=== PATIENT | male | born 1940 | race Caucasian/White ===

== ENCOUNTER 2018-01-08 17:55 | Inpatient (IN) | payer MEDICARE, BC ==
[~2018-01-08] VITALS: Ht 170.2 cm; Wt 82.7 kg
[2018-01-08] MEDS ORDERED: magnesium hydroxide 30ml (MOM) UD suspension PO PRN (21:00)
[2018-01-08] MEDS ORDERED: HYDROcodone/acetaminophen 5mg/325mg tablet PO PRN (21:00)
[2018-01-08] MEDS ORDERED: acetaminophen 325mg tablet PO PRN ×2 (21:00)
[2018-01-08] MEDS: HYDROcodone/acetaminophen 10/325mg tab PO PRN (21:28)
[2018-01-08 21:50] LABS: PARTIAL THROMBOPLASTIN TIME 30 SECONDS (22-32); PROTHROMBIN TIME 10.7 SECONDS (9.0-12.0)
[2018-01-08 21:55] LABS: ALANINE AMINOTRANSFERASE 26 U/L (12-78); ALBUMIN 2.6 G/DL (3.4-5.0); ALBUMIN/GLOBULIN RATIO 0.8 (1.1-1.5); ALKALINE PHOSPHATASE 49 IU/L (46-116); ANION GAP 4 (8-16); ASPARTATE AMINO TRANSFERASE 31 U/L (10-37); BILIRUBIN,TOTAL 0.3 MG/DL (0.1-1.0); BLOOD UREA NITROGEN 12 MG/DL (7-18); BUN/CREATININE RATIO 11.9 (5.4-32.0); CALCIUM 7.7 MG/DL (8.5-10.1); CHLORIDE 104 MMOL/L (99-107); CREATININE 1.01 MG/DL (0.60-1.10); GLUCOSE 113 MG/DL (70-104); MAGNESIUM 1.4 MG/DL (1.5-2.4); SODIUM 136 MMOL/L (135-145); TOTAL CARBON DIOXIDE 28.3 MMOL/L (24-32); eGFR 71 ML/MIN
[2018-01-08 22:00] VITALS: BP 114/57
[2018-01-08 22:03] LABS: POTASSIUM 4.1 MMOL/L (3.5-5.1)
[2018-01-08] MEDS: normal saline 1000ml 1,000 ML IV SCH (23:40)
[2018-01-09] MEDS: piperacillin/tazo 4.5gm/100ml 100 ML IV SCH ×4 (00:38→23:46)
[2018-01-09 05:03] LABS: BASOPHILS # (AUTO) 0.1 X10'3 (0-0.2); BASOPHILS % (AUTO) 0.3 % (0-1); EOSINOPHILS # (AUTO) 0.5 X10'3 (0-0.9); EOSINOPHILS % (AUTO) 2.8 % (0-6); HEMATOCRIT 34.2 % (42.0-52.0); HEMOGLOBIN 11.3 g/dl (14.0-17.9); LYMPHOCYTES # (AUTO) 2.2 X10'3 (1.1-4.8); LYMPHOCYTES % (AUTO) 13.3 % (21-51); MEAN CORPUSCULAR HEMOGLOBIN 29.8 PG (27.0-31.0); MEAN CORPUSCULAR HGB CONC 33.1 % (33.0-36.5); MEAN CORPUSCULAR VOLUME 89.9 FL (78-98); MEAN PLATELET VOLUME 9.1 FL (7.4-10.4); MONOCYTES # (AUTO) 1.4 X10'3 (0-0.9); MONOCYTES % (AUTO) 8.6 % (2-12); NEUTROPHILS # (AUTO) 12.4 X10'3 (1.8-7.7); PLATELET COUNT 217 X10'3 (140-440); RED CELL DISTRIBUTION WIDTH 14.5 % (11.5-14.5); WHITE BLOOD COUNT 16.5 X10'3 (4.5-11.0)
[2018-01-09 05:25] LABS: ALANINE AMINOTRANSFERASE 22 U/L (12-78); ALBUMIN 2.3 G/DL (3.4-5.0); ALBUMIN/GLOBULIN RATIO 0.8 (1.1-1.5); ALKALINE PHOSPHATASE 40 IU/L (46-116); ANION GAP 4 (8-16); ASPARTATE AMINO TRANSFERASE 26 U/L (10-37); BILIRUBIN,TOTAL 0.3 MG/DL (0.1-1.0); BLOOD UREA NITROGEN 10 MG/DL (7-18); BUN/CREATININE RATIO 9.5 (5.4-32.0); CALCIUM 7.5 MG/DL (8.5-10.1); CHLORIDE 106 MMOL/L (99-107); CREATININE 1.05 MG/DL (0.60-1.10); GLUCOSE 90 MG/DL (70-104); MAGNESIUM 1.3 MG/DL (1.5-2.4); POTASSIUM 4.2 MMOL/L (3.5-5.1); SODIUM 138 MMOL/L (135-145); TOTAL CARBON DIOXIDE 28.3 MMOL/L (24-32); TOTAL PROTEIN 5.3 G/DL (6.4-8.2); eGFR 68 ML/MIN
[2018-01-09 07:00] VITALS: BP 141/69
[2018-01-09] MEDS: heparin, porcine 5000 units/ml vial SQ SCH ×2 (08:00→20:53)
[2018-01-09] MEDS: HYDROcodone/acetaminophen 10/325mg tab PO PRN ×2 (08:02→20:50)
[2018-01-09] MEDS ORDERED: HYDR-565 PO (10:07)
[2018-01-09] MEDS ORDERED: LISI10TA4 PO (10:09)
[2018-01-09] MEDS ORDERED: ASPI-1265 PO (10:09)
[2018-01-09] MEDS ORDERED: OMEP40CA37 PO (10:12)
[2018-01-09] MEDS ORDERED: ALPR1TAB2 PO (10:12)
[2018-01-09] MEDS ORDERED: SINCALIDE IV PRN (12:35)
[2018-01-09] MEDS ORDERED: NORMAL SALINE IV PRN (12:35)
[2018-01-09] MEDS: normal saline 1000ml 1,000 ML IV SCH ×2 (12:43→16:56)
[2018-01-09] MEDS ORDERED: magnesium 1gm/100ml D5W IVPB 100 ML IV PRN (13:05)
[2018-01-09] MEDS ORDERED: magnesium 4gm in 100ml NS 100 ML IV PRN (13:05)
[2018-01-09 20:00] VITALS: BP 134/75
[2018-01-09] MEDS: lactobacillus rhamnosus 10,000 MMU CELLS/CAPSULE PO SCH (20:49)
[2018-01-09] MEDS: magnesium Cl slow-release 64mg tablet PO PRN (21:50)
[2018-01-09] MEDS ORDERED: CAFFEINE CITRATE 60 MG/3 ML injection vial IV PRN (22:35)
[2018-01-09] MEDS ORDERED: regadenoson 0.4mg/5ml syringe IV PRN (22:35)
[2018-01-09] MEDS ORDERED: metoprolol tartrate 1mg/ml inj IV PRN (22:35)
[2018-01-09] MEDS ORDERED: nitroGLYCERIN 0.4mg SUBLingual tab SL PRN (22:35)
[2018-01-09] MEDS: temazepam 15mg capsule PO PRN (23:47)
[2018-01-10] VITALS (13 sets, daily range): BP systolic 110–160; BP diastolic 49–89
[2018-01-10] MEDS: normal saline 1000ml 1,000 ML IV SCH ×3 (03:17→22:56)
[2018-01-10 05:13] LABS: BASOPHILS % (AUTO) 0.3 % (0-1); EOSINOPHILS # (AUTO) 0.4 X10'3 (0-0.9); EOSINOPHILS % (AUTO) 2.4 % (0-6); HEMATOCRIT 36.2 % (42.0-52.0); LYMPHOCYTES % (AUTO) 13.1 % (21-51); MEAN CORPUSCULAR HEMOGLOBIN 29.6 PG (27.0-31.0); MEAN CORPUSCULAR HGB CONC 33.2 % (33.0-36.5); MEAN CORPUSCULAR VOLUME 89.3 FL (78-98); MEAN PLATELET VOLUME 8.9 FL (7.4-10.4); MONOCYTES # (AUTO) 1.4 X10'3 (0-0.9); MONOCYTES % (AUTO) 8.8 % (2-12); NEUTROPHILS # (AUTO) 11.7 X10'3 (1.8-7.7); NEUTROPHILS % (AUTO) 75.4 % (42-75); PLATELET COUNT 246 X10'3 (140-440); RED BLOOD COUNT 4.06 X10'6 (4.70-6.10); RED CELL DISTRIBUTION WIDTH 14.7 % (11.5-14.5); WHITE BLOOD COUNT 15.6 X10'3 (4.5-11.0)
[2018-01-10 05:35] LABS: ALANINE AMINOTRANSFERASE 18 U/L (12-78); ALBUMIN 2.3 G/DL (3.4-5.0); ALBUMIN/GLOBULIN RATIO 0.7 (1.1-1.5); ALKALINE PHOSPHATASE 42 IU/L (46-116); ANION GAP 8 (8-16); ASPARTATE AMINO TRANSFERASE 28 U/L (10-37); BILIRUBIN,TOTAL 0.5 MG/DL (0.1-1.0); BLOOD UREA NITROGEN 7 MG/DL (7-18); CALCIUM 7.8 MG/DL (8.5-10.1); CHLORIDE 106 MMOL/L (99-107); CREATININE 0.87 MG/DL (0.60-1.10); GLUCOSE 78 MG/DL (70-104); MAGNESIUM 1.5 MG/DL (1.5-2.4); POTASSIUM 3.6 MMOL/L (3.5-5.1); SODIUM 142 MMOL/L (135-145); TOTAL CARBON DIOXIDE 28.4 MMOL/L (24-32); TOTAL PROTEIN 5.4 G/DL (6.4-8.2); eGFR 85 ML/MIN
[2018-01-10] MEDS: lactobacillus rhamnosus 10,000 MMU CELLS/CAPSULE PO SCH ×2 (07:54→21:14)
[2018-01-10] MEDS: piperacillin/tazo 4.5gm/100ml 100 ML IV SCH ×3 (07:54→23:48)
[2018-01-10] MEDS: heparin, porcine 5000 units/ml vial SQ SCH ×2 (07:56→21:15)
[2018-01-10] MEDS: HYDROcodone/acetaminophen 10/325mg tab PO PRN ×4 (07:56→22:07)
[2018-01-10] MEDS: lisinopril 10 MG tablet PO SCH (07:56)
[2018-01-10] MEDS ORDERED: fentaNYL/PF 50MCG/1 ML 2ML syringe ONE (11:18)
[2018-01-10] MEDS ORDERED: LIDOcaine 1%/PF 5ML 10 MG/ML VIAL ONE (11:28)
[2018-01-10] MEDS: docusate sod 100mg capsule PO SCH (21:14)
[2018-01-10] MEDS: temazepam 15mg capsule PO PRN (23:48)
[2018-01-11] VITALS: BP 159/80
[2018-01-11] MEDS: HYDROcodone/acetaminophen 10/325mg tab PO PRN ×3 (02:03→17:11)
[2018-01-11] MEDS: normal saline 1000ml 1,000 ML IV SCH ×2 (02:03→12:22)
[2018-01-11 05:16] LABS: BASOPHILS % (AUTO) 0.2 % (0-1); EOSINOPHILS # (AUTO) 0.4 X10'3 (0-0.9); EOSINOPHILS % (AUTO) 2.7 % (0-6); HEMATOCRIT 35.1 % (42.0-52.0); HEMOGLOBIN 11.6 g/dl (14.0-17.9); MEAN CORPUSCULAR HEMOGLOBIN 29.5 PG (27.0-31.0); MEAN CORPUSCULAR HGB CONC 32.9 % (33.0-36.5); MEAN CORPUSCULAR VOLUME 89.5 FL (78-98); MEAN PLATELET VOLUME 9.3 FL (7.4-10.4); MONOCYTES # (AUTO) 1.6 X10'3 (0-0.9); NEUTROPHILS # (AUTO) 10.2 X10'3 (1.8-7.7); NEUTROPHILS % (AUTO) 72.1 % (42-75); PLATELET COUNT 255 X10'3 (140-440); RED BLOOD COUNT 3.92 X10'6 (4.70-6.10); RED CELL DISTRIBUTION WIDTH 14.6 % (11.5-14.5); WHITE BLOOD COUNT 14.2 X10'3 (4.5-11.0)
[2018-01-11 05:31] LABS: ALANINE AMINOTRANSFERASE 20 U/L (12-78); ALBUMIN 2.2 G/DL (3.4-5.0); ALBUMIN/GLOBULIN RATIO 0.7 (1.1-1.5); ALKALINE PHOSPHATASE 38 IU/L (46-116); ANION GAP 7 (8-16); ASPARTATE AMINO TRANSFERASE 27 U/L (10-37); BILIRUBIN,TOTAL 0.5 MG/DL (0.1-1.0); BLOOD UREA NITROGEN 6 MG/DL (7-18); BUN/CREATININE RATIO 6.3 (5.4-32.0); CALCIUM 7.5 MG/DL (8.5-10.1); CHLORIDE 105 MMOL/L (99-107); CREATININE 0.95 MG/DL (0.60-1.10); GLUCOSE 89 MG/DL (70-104); MAGNESIUM 1.4 MG/DL (1.5-2.4); POTASSIUM 3.6 MMOL/L (3.5-5.1); SODIUM 138 MMOL/L (135-145); TOTAL CARBON DIOXIDE 26.2 MMOL/L (24-32); TOTAL PROTEIN 5.4 G/DL (6.4-8.2); eGFR 77 ML/MIN
[2018-01-11] MEDS: heparin, porcine 5000 units/ml vial SQ SCH ×2 (07:10→19:18)
[2018-01-11] MEDS: magnesium Cl slow-release 64mg tablet PO PRN ×2 (07:10→19:20)
[2018-01-11] MEDS: docusate sod 100mg capsule PO SCH ×2 (07:11→19:17)
[2018-01-11] MEDS: lisinopril 10 MG tablet PO SCH (07:11)
[2018-01-11] MEDS: lactobacillus rhamnosus 10,000 MMU CELLS/CAPSULE PO SCH ×2 (07:11→19:17)
[2018-01-11] MEDS: piperacillin/tazo 4.5gm/100ml 100 ML IV SCH ×3 (07:11→23:16)
[2018-01-11] MEDS: ondansetron/PF 4mg/2ml inj IV PRN ×2 (07:12→23:00)
[2018-01-11 07:35] VITALS: BP 177/81
[2018-01-11] MEDS ORDERED: morphine 2 MG/ML inj. syringe IV PRN (10:10)
[2018-01-11 10:17] VITALS: BP 152/76
[2018-01-11 11:31] VITALS: BP 122/68
[2018-01-11] MEDS: mag hydrox/Alum hydrox/simeth 30ml oral suspension PO PRN ×2 (12:24→19:21)
[2018-01-11] MEDS ORDERED: furosemide 40mg/4ml inj IV ONE (16:50)
[2018-01-11 18:00] VITALS: BP 133/79
[2018-01-11] MEDS: diatr meglu/diatrizoate 30ml oral sol.-(3 dose) bottle PO SCH (19:38)
[2018-01-11] MEDS: temazepam 15mg capsule PO PRN (22:52)
[2018-01-11 23:30] VITALS: BP 146/77
[2018-01-12 05:08] LABS: BASOPHILS # (AUTO) 0.1 X10'3 (0-0.2); BASOPHILS % (AUTO) 0.4 % (0-1); EOSINOPHILS # (AUTO) 0.2 X10'3 (0-0.9); EOSINOPHILS % (AUTO) 1.1 % (0-6); HEMATOCRIT 40.4 % (42.0-52.0); HEMOGLOBIN 13.3 g/dl (14.0-17.9); LYMPHOCYTES # (AUTO) 1.9 X10'3 (1.1-4.8); LYMPHOCYTES % (AUTO) 11.4 % (21-51); MEAN CORPUSCULAR HEMOGLOBIN 29.6 PG (27.0-31.0); MEAN CORPUSCULAR HGB CONC 32.9 % (33.0-36.5); MEAN CORPUSCULAR VOLUME 89.9 FL (78-98); MEAN PLATELET VOLUME 8.7 FL (7.4-10.4); MONOCYTES # (AUTO) 1.7 X10'3 (0-0.9); NEUTROPHILS # (AUTO) 12.9 X10'3 (1.8-7.7); NEUTROPHILS % (AUTO) 77.1 % (42-75); PLATELET COUNT 310 X10'3 (140-440); RED CELL DISTRIBUTION WIDTH 14.4 % (11.5-14.5); WHITE BLOOD COUNT 16.8 X10'3 (4.5-11.0)
[2018-01-12 05:56] LABS: ALANINE AMINOTRANSFERASE 23 U/L (12-78); ALBUMIN 2.6 G/DL (3.4-5.0); ALBUMIN/GLOBULIN RATIO 0.7 (1.1-1.5); ALKALINE PHOSPHATASE 41 IU/L (46-116); ANION GAP 3 (8-16); ASPARTATE AMINO TRANSFERASE 30 U/L (10-37); BILIRUBIN,TOTAL 0.5 MG/DL (0.1-1.0); BLOOD UREA NITROGEN 6 MG/DL (7-18); CALCIUM 8.1 MG/DL (8.5-10.1); CHLORIDE 102 MMOL/L (99-107); CREATININE 1.21 MG/DL (0.60-1.10); GLUCOSE 105 MG/DL (70-104); MAGNESIUM 1.6 MG/DL (1.5-2.4); POTASSIUM 3.5 MMOL/L (3.5-5.1); SODIUM 137 MMOL/L (135-145); TOTAL PROTEIN 6.3 G/DL (6.4-8.2); eGFR 58 ML/MIN
[2018-01-12] MEDS: diatr meglu/diatrizoate 30ml oral sol.-(3 dose) bottle PO SCH ×2 (06:58→20:24)
[2018-01-12 07:07] VITALS: BP 126/72
[2018-01-12] MEDS: piperacillin/tazo 4.5gm/100ml 100 ML IV SCH ×3 (07:13→23:55)
[2018-01-12] MEDS: docusate sod 100mg capsule PO SCH ×2 (07:13→20:00)
[2018-01-12] MEDS: lisinopril 10 MG tablet PO SCH (07:14)
[2018-01-12] MEDS: lactobacillus rhamnosus 10,000 MMU CELLS/CAPSULE PO SCH ×2 (07:14→20:19)
[2018-01-12] MEDS: magnesium hydroxide 30ml (MOM) UD suspension PO SCH ×2 (07:14→20:00)
[2018-01-12] MEDS: heparin, porcine 5000 units/ml vial SQ SCH ×2 (07:15→20:00)
[2018-01-12] MEDS: ondansetron/PF 4mg/2ml inj IV PRN (08:11)
[2018-01-12] MEDS ORDERED: furosemide 10 MG/1 ML 10ml inj IV ONE (09:15)
[2018-01-12] MEDS: HYDROcodone/acetaminophen 10/325mg tab PO PRN ×3 (10:41→20:20)
[2018-01-12 11:33] VITALS: BP 143/61
[2018-01-12 18:00] VITALS: BP 109/55
[2018-01-12] MEDS: temazepam 15mg capsule PO PRN (22:38)
[2018-01-13] VITALS: BP 125/60
[2018-01-13 05:02] LABS: BASOPHILS % (AUTO) 0.4 % (0-1); EOSINOPHILS # (AUTO) 0.3 X10'3 (0-0.9); EOSINOPHILS % (AUTO) 2.3 % (0-6); HEMATOCRIT 35.1 % (42.0-52.0); HEMOGLOBIN 11.5 g/dl (14.0-17.9); LYMPHOCYTES # (AUTO) 1.6 X10'3 (1.1-4.8); LYMPHOCYTES % (AUTO) 13.3 % (21-51); MEAN CORPUSCULAR HEMOGLOBIN 29.4 PG (27.0-31.0); MEAN CORPUSCULAR HGB CONC 32.9 % (33.0-36.5); MEAN CORPUSCULAR VOLUME 89.3 FL (78-98); MEAN PLATELET VOLUME 9.1 FL (7.4-10.4); MONOCYTES # (AUTO) 1.4 X10'3 (0-0.9); MONOCYTES % (AUTO) 11.4 % (2-12); NEUTROPHILS # (AUTO) 8.8 X10'3 (1.8-7.7); NEUTROPHILS % (AUTO) 72.6 % (42-75); PLATELET COUNT 287 X10'3 (140-440); RED BLOOD COUNT 3.93 X10'6 (4.70-6.10); RED CELL DISTRIBUTION WIDTH 14.7 % (11.5-14.5); WHITE BLOOD COUNT 12.1 X10'3 (4.5-11.0)
[2018-01-13 05:17] LABS: ALANINE AMINOTRANSFERASE 18 U/L (12-78); ALBUMIN 2.2 G/DL (3.4-5.0); ALBUMIN/GLOBULIN RATIO 0.6 (1.1-1.5); ALKALINE PHOSPHATASE 33 IU/L (46-116); ANION GAP 3 (8-16); ASPARTATE AMINO TRANSFERASE 32 U/L (10-37); BILIRUBIN,TOTAL 0.3 MG/DL (0.1-1.0); BLOOD UREA NITROGEN 8 MG/DL (7-18); BUN/CREATININE RATIO 7.7 (5.4-32.0); CHLORIDE 102 MMOL/L (99-107); CREATININE 1.04 MG/DL (0.60-1.10); GLUCOSE 102 MG/DL (70-104); MAGNESIUM 1.7 MG/DL (1.5-2.4); SODIUM 139 MMOL/L (135-145); TOTAL CARBON DIOXIDE 34.4 MMOL/L (24-32); TOTAL PROTEIN 5.6 G/DL (6.4-8.2); eGFR 69 ML/MIN
[2018-01-13 05:19] LABS: POTASSIUM 2.9 MMOL/L (3.5-5.1)
[2018-01-13] MEDS ORDERED: potassium Cl 20 mEq SR tablet PO PRN (05:40)
[2018-01-13] MEDS ORDERED: potassium Cl 40MEQ/NS 500ml 500 ML IV PRN ×2 (05:40)
[2018-01-13 07:00] VITALS: BP 152/73
[2018-01-13] MEDS: piperacillin/tazo 4.5gm/100ml 100 ML IV SCH ×3 (07:17→23:39)
[2018-01-13] MEDS: HYDROcodone/acetaminophen 10/325mg tab PO PRN ×2 (07:18→14:07)
[2018-01-13] MEDS: lisinopril 10 MG tablet PO SCH (07:18)
[2018-01-13] MEDS: magnesium hydroxide 30ml (MOM) UD suspension PO SCH ×2 (07:19→20:00)
[2018-01-13] MEDS: lactobacillus rhamnosus 10,000 MMU CELLS/CAPSULE PO SCH ×2 (07:21→20:07)
[2018-01-13] MEDS: docusate sod 100mg capsule PO SCH ×2 (07:22→20:00)
[2018-01-13] MEDS: heparin, porcine 5000 units/ml vial SQ SCH ×2 (07:23→20:00)
[2018-01-13] MEDS: potassium Cl 20 mEq SR tablet PO PRN ×3 (09:37→18:29)
[2018-01-13 11:00] VITALS: BP 147/73
[2018-01-13] MEDS ORDERED: regadenoson 0.4mg/5ml syringe IV ONE (12:10)
[2018-01-13] MEDS ORDERED: CAFFEINE CITRATE 60 MG/3 ML injection vial IV PRN (12:10)
[2018-01-13] MEDS ORDERED: nitroGLYCERIN 0.4mg SUBLingual tab SL PRN (12:10)
[2018-01-13] MEDS ORDERED: metoprolol tartrate 1mg/ml inj IV PRN (12:10)
[2018-01-13 19:00] VITALS: BP 131/71
[2018-01-13] MEDS: mag hydrox/Alum hydrox/simeth 30ml oral suspension PO PRN (21:01)
[2018-01-13] MEDS: ondansetron/PF 4mg/2ml inj IV PRN (22:05)
[2018-01-14] VITALS (16 sets, daily range): BP systolic 91–157; BP diastolic 53–79
[2018-01-14] MEDS: piperacillin/tazo 4.5gm/100ml 100 ML IV SCH ×2 (07:48→15:21)
[2018-01-14] MEDS: HYDROcodone/acetaminophen 10/325mg tab PO PRN ×4 (07:48→21:40)
[2018-01-14] MEDS: heparin, porcine 5000 units/ml vial SQ SCH ×2 (08:00→20:00)
[2018-01-14] MEDS: magnesium hydroxide 30ml (MOM) UD suspension PO SCH ×2 (08:00→20:00)
[2018-01-14] MEDS: lisinopril 10 MG tablet PO SCH (08:00)
[2018-01-14] MEDS: lactobacillus rhamnosus 10,000 MMU CELLS/CAPSULE PO SCH ×2 (08:00→20:00)
[2018-01-14] MEDS: docusate sod 100mg capsule PO SCH ×2 (08:00→20:00)
[2018-01-14] MEDS ORDERED: regadenoson 0.4mg/5ml syringe IV ONE (08:39)
[2018-01-14] MEDS ORDERED: CAFFEINE CITRATE 60 MG/3 ML injection vial IV ONE (08:39)
[2018-01-14 12:32] LABS: BASOPHILS % (AUTO) 0.3 % (0-1); EOSINOPHILS # (AUTO) 0.3 X10'3 (0-0.9); EOSINOPHILS % (AUTO) 2.3 % (0-6); HEMATOCRIT 38.6 % (42.0-52.0); HEMOGLOBIN 12.9 g/dl (14.0-17.9); LYMPHOCYTES # (AUTO) 1.6 X10'3 (1.1-4.8); LYMPHOCYTES % (AUTO) 11.7 % (21-51); MEAN CORPUSCULAR HEMOGLOBIN 29.8 PG (27.0-31.0); MEAN CORPUSCULAR HGB CONC 33.4 % (33.0-36.5); MEAN CORPUSCULAR VOLUME 89.1 FL (78-98); MEAN PLATELET VOLUME 9.1 FL (7.4-10.4); MONOCYTES # (AUTO) 1.4 X10'3 (0-0.9); MONOCYTES % (AUTO) 10.1 % (2-12); NEUTROPHILS # (AUTO) 10.5 X10'3 (1.8-7.7); NEUTROPHILS % (AUTO) 75.6 % (42-75); PLATELET COUNT 331 X10'3 (140-440); RED BLOOD COUNT 4.33 X10'6 (4.70-6.10); RED CELL DISTRIBUTION WIDTH 14.4 % (11.5-14.5); WHITE BLOOD COUNT 13.9 X10'3 (4.5-11.0)
[2018-01-14] MEDS: mag hydrox/Alum hydrox/simeth 30ml oral suspension PO PRN (20:22)
[2018-01-14] MEDS: carVEDilol 3.125mg tablet PO SCH (20:24)
[2018-01-15] VITALS: BP 142/75
[2018-01-15] MEDS: piperacillin/tazo 4.5gm/100ml 100 ML IV SCH ×4 (00:03→23:19)
[2018-01-15 07:20] VITALS: BP 168/75
[2018-01-15] MEDS: carVEDilol 3.125mg tablet PO SCH ×2 (07:56→19:41)
[2018-01-15] MEDS: docusate sod 100mg capsule PO SCH ×2 (08:00→19:38)
[2018-01-15] MEDS: magnesium hydroxide 30ml (MOM) UD suspension PO SCH ×2 (08:00→19:38)
[2018-01-15] MEDS: lisinopril 10 MG tablet PO SCH (08:00)
[2018-01-15] MEDS: heparin, porcine 5000 units/ml vial SQ SCH ×2 (08:00→19:39)
[2018-01-15] MEDS: lactobacillus rhamnosus 10,000 MMU CELLS/CAPSULE PO SCH ×2 (08:00→19:42)
[2018-01-15] MEDS: pantoprazole 40mg Tablet.DR PO SCH (09:54)
[2018-01-15 11:20] VITALS: BP 127/69
[2018-01-15] MEDS: HYDROcodone/acetaminophen 10/325mg tab PO PRN ×2 (12:34→21:53)
[2018-01-15 13:35] LABS: BASOPHILS % (AUTO) 0.4 % (0-1); EOSINOPHILS # (AUTO) 0.4 X10'3 (0-0.9); EOSINOPHILS % (AUTO) 3.6 % (0-6); HEMATOCRIT 37.9 % (42.0-52.0); HEMOGLOBIN 12.6 g/dl (14.0-17.9); LYMPHOCYTES # (AUTO) 1.4 X10'3 (1.1-4.8); LYMPHOCYTES % (AUTO) 12.8 % (21-51); MEAN CORPUSCULAR HEMOGLOBIN 29.5 PG (27.0-31.0); MEAN CORPUSCULAR HGB CONC 33.3 % (33.0-36.5); MEAN CORPUSCULAR VOLUME 88.5 FL (78-98); MEAN PLATELET VOLUME 8.6 FL (7.4-10.4); MONOCYTES # (AUTO) 1.1 X10'3 (0-0.9); MONOCYTES % (AUTO) 9.9 % (2-12); NEUTROPHILS # (AUTO) 8.1 X10'3 (1.8-7.7); NEUTROPHILS % (AUTO) 73.3 % (42-75); PLATELET COUNT 319 X10'3 (140-440); RED BLOOD COUNT 4.28 X10'6 (4.70-6.10); RED CELL DISTRIBUTION WIDTH 14.3 % (11.5-14.5)
[2018-01-15 13:48] LABS: ALANINE AMINOTRANSFERASE 36 U/L (12-78); ALBUMIN 2.4 G/DL (3.4-5.0); ALBUMIN/GLOBULIN RATIO 0.7 (1.1-1.5); ALKALINE PHOSPHATASE 38 IU/L (46-116); ANION GAP 5 (8-16); ASPARTATE AMINO TRANSFERASE 50 U/L (10-37); BILIRUBIN,TOTAL 0.6 MG/DL (0.1-1.0); BLOOD UREA NITROGEN 6 MG/DL (7-18); BUN/CREATININE RATIO 6.8 (5.4-32.0); CHLORIDE 101 MMOL/L (99-107); CREATININE 0.88 MG/DL (0.60-1.10); GLUCOSE 91 MG/DL (70-104); SODIUM 135 MMOL/L (135-145); TOTAL CARBON DIOXIDE 28.9 MMOL/L (24-32); TOTAL PROTEIN 5.8 G/DL (6.4-8.2); eGFR 84 ML/MIN
[2018-01-15] MEDS: ondansetron/PF 4mg/2ml inj IV PRN (15:55)
[2018-01-15 18:00] VITALS: BP 132/80
[2018-01-15 20:00] VITALS: BP 132/80
[2018-01-16] VITALS: BP 148/73
[2018-01-16 07:17] VITALS: BP 155/84
[2018-01-16] MEDS: pantoprazole 40mg Tablet.DR PO SCH (07:32)
[2018-01-16] MEDS: piperacillin/tazo 4.5gm/100ml 100 ML IV SCH (07:32)
[2018-01-16] MEDS: docusate sod 100mg capsule PO SCH (07:39)
[2018-01-16] MEDS: carVEDilol 3.125mg tablet PO SCH (07:40)
[2018-01-16] MEDS: lisinopril 10 MG tablet PO SCH (07:40)
[2018-01-16] MEDS: lactobacillus rhamnosus 10,000 MMU CELLS/CAPSULE PO SCH (07:40)
[2018-01-16] MEDS: heparin, porcine 5000 units/ml vial SQ SCH (07:40)
[2018-01-16] MEDS: magnesium hydroxide 30ml (MOM) UD suspension PO SCH (07:40)
[2018-01-16] MEDS: HYDROcodone/acetaminophen 10/325mg tab PO PRN (09:31)
[2018-01-16 11:00] VITALS: BP 131/53
[2018-01-16] MEDS ORDERED: COR3.125T PO (11:49)
[2018-01-16] MEDS ORDERED: AMOX-422 PO (11:50)
== END 2018-01-16 15:55 | disposition home health service (06) | DRG 871 ==
LOC: SUR 3N 20:57
PROVIDERS: ADMIT Surgery; ATTEND Family Medicine
PROC: CF2YYZZ Tomographic (Tomo) Nuclear Medicine Imaging of Hepatobiliary System and Pancreas using Other Radionuclide (ICD-10-PCS; principal; 2018-01-09)
PROC: 0F9430Z Drainage of Gallbladder with Drainage Device, Percutaneous Approach (ICD-10-PCS; 2018-01-10)
PROC: 4A02XM4 Measurement of Cardiac Total Activity, External Approach (ICD-10-PCS; 2018-01-14)
PROC: 3E033HZ Introduction of Radioactive Substance into Peripheral Vein, Percutaneous Approach (ICD-10-PCS; 2018-01-14)
DX: A41.9 Sepsis, unspecified organism (principal); I50.23 Acute on chronic systolic (congestive) heart failure; E43 Unspecified severe protein-calorie malnutrition; K80.00 Calculus of gallbladder with acute cholecystitis without obstruction; N17.9 Acute kidney failure, unspecified; D64.9 Anemia, unspecified; E83.42 Hypomagnesemia; M54.9 Dorsalgia, unspecified; G89.29 Other chronic pain; E83.51 Hypocalcemia; E87.6 Hypokalemia; I11.0 Hypertensive heart disease with heart failure; I25.10 Atherosclerotic heart disease of native coronary artery without angina pectoris; Z95.1 Presence of aortocoronary bypass graft; Z79.899 Other long term (current) drug therapy; Z68.28 Body mass index [BMI] 28.0-28.9, adult
CPT/HCPCS: 36415; 49406; 70450; 74176; 76700; 78226; 78452; 80053; 83735; 84132; 85025; 85610; 85730; 87070; 93017; 97116; 97161; 99285; A6257; A6449; A9500; A9537; C1729; C1769; J1644; J1940; J2001; J2270; J2405; J2543; J2805; J3010; J7030; J7040

== ENCOUNTER 2018-02-09 09:52 | Inpatient (IN) | payer MEDICARE, BC ==
[2018-02-09] VITALS (19 sets, daily range): BP systolic 92–154; BP diastolic 56–82
[~2018-02-09] VITALS: Ht 168.9 cm; Wt 77.1 kg
[~2018-02-09 09:52] MED LIST: ALPR1TAB2 PO; HYDR-565 PO; OMEP40CA37 PO; ceFOXitin 2 GM ADDvantage bag 100 ML IV ONE; famotidine 20mg tablet PO ONE
[2018-02-09] MEDS: ringers solution, lacted 1,000 ML IV SCH ×2 (10:53→23:00)
[2018-02-09 10:56] LABS: MEAN CORPUSCULAR HEMOGLOBIN 29.6 PG (27.0-31.0); MEAN CORPUSCULAR HGB CONC 33.8 % (33.0-36.5); MEAN CORPUSCULAR VOLUME 87.7 FL (78-98); MEAN PLATELET VOLUME 10.6 FL (7.4-10.4); PRE OP HEMATOCRIT 42.3 % (42.0-52.0); PRE OP HEMOGLOBIN 14.3 g/dL (14.0-17.9); PRE OP PLATELET COUNT 189 X10'3 (140-440); RED BLOOD COUNT 4.82 X10'6 (4.70-6.10); RED CELL DISTRIBUTION WIDTH 14.3 % (11.5-14.5)
[2018-02-09 11:03] LABS: PRE OP INR 1.1 INR; PRE OP PROTIME 11.2 SECONDS (9.0-12.0)
[2018-02-09 11:07] LABS: ALBUMIN 3.8 G/DL (3.4-5.0); ALBUMIN/GLOBULIN RATIO 1.1 (1.1-1.5); ALKALINE PHOSPHATASE 67 IU/L (46-116); BLOOD UREA NITROGEN 19 MG/DL (7-18); BUN/CREATININE RATIO 11.9 (5.4-32.0); CALCIUM 8.9 MG/DL (8.5-10.1); CHLORIDE 98 MMOL/L (99-107); PRE OP ANION GAP 11 (8-16); PRE OP AST 83 U/L (10-37); PRE OP BILIRUB, TOTAL 0.7 MG/DL (0.0-1.0); PRE OP GLUCOSE 107 MG/DL (70-104); PRE OP POTASSIUM 3.7 MMOL/L (3.4-5.1); PRE OP SODIUM 134 MMOL/L (135-145); TOTAL CARBON DIOXIDE 24.6 MMOL/L (24-32); TOTAL PROTEIN 7.4 G/DL (6.4-8.2); eGFR 42 ML/MIN
[2018-02-09 11:10] LABS: PRE OP ALT 103 U/L (30-65)
[2018-02-09 11:34] LABS: BASOPHILS % (MANUAL) 2 % (0-1); EOSINOPHILS % (MANUAL) 1 % (0-6); LYMPHOCYTES % (MANUAL) 10 % (21-51); MONOCYTES % (MANUAL) 27 % (2-12); NEUTROPHILS % (MANUAL) 60 % (42-75); PLATELET ESTIMATE NORMAL; TOTAL CELLS COUNTED 100
[2018-02-09] MEDS ORDERED: ceFAZolin 1000mg inj ONE (15:12)
[2018-02-09] MEDS ORDERED: BUPIVAcaine/PF 2.5mg/ml (0.25%) 10ml vial ONE (15:12)
[2018-02-09] MEDS ORDERED: ringers solution, lacted 1,000 ML IV SCH (15:25)
[2018-02-09] MEDS ORDERED: ondansetron/PF 4mg/2ml inj IV PRN ×2 (15:25→18:25)
[2018-02-09] MEDS ORDERED: meperidine/PF 25mg/ml syringe IV PRN ×2 (15:25)
[2018-02-09] MEDS ORDERED: proCHLORperazine 10 MG/2 ml inj IV PRN (15:25)
[2018-02-09] MEDS ORDERED: morphine 4 MG/ML inj SYRINge IV PRN (15:25)
[2018-02-09] MEDS ORDERED: sevoflurane 250ml liquid IH ONE (16:50)
[2018-02-09] MEDS ORDERED: neostigmine methylsulfate 1 MG/ML 10ml vial ONE (16:50)
[2018-02-09] MEDS ORDERED: ketorolac trometh. 30mg/ml inj. ONE (16:50)
[2018-02-09] MEDS ORDERED: ondansetron/PF 4mg/2ml inj ONE (16:50)
[2018-02-09] MEDS ORDERED: fentaNYL/PF 50MCG/1 ML 2ML syringe ONE (16:57)
[2018-02-09] MEDS ORDERED: midazolam 2 mg/2 ml injection ONE (16:58)
[2018-02-09] MEDS ORDERED: propofol inj 20 ML IV ONE (16:59)
[2018-02-09] MEDS ORDERED: ePHEDrine 50MG/ML INJ. ONE (17:26)
[2018-02-09] MEDS ORDERED: rocuronium 10mg/ml inj IV ONE (17:58)
[2018-02-09] MEDS ORDERED: glycopyrrolate 0.2mg/ml inj ONE (18:09)
[2018-02-09] MEDS ORDERED: sugammadex 200mg/2ml injection IV ONE (18:29)
[2018-02-09] MEDS: meperidine/PF 25mg/ml syringe IV PRN ×2 (19:00→19:12)
[2018-02-09] MEDS: morphine 4 MG/ML inj SYRINge IV PRN ×2 (19:01→19:13)
[2018-02-09] MEDS: potassium CL 20mEq in D5-1/2NS 1,000 ML IV SCH (21:46)
[2018-02-09] MEDS: ceFOXitin 1 GM ADDVANTAGE BAG 50 ML IV SCH (23:46)
[2018-02-09] MEDS: HYDROmorphone 1 mg/ml syringe IV PRN (23:53)
[2018-02-10] VITALS: BP 113/68
[2018-02-10] MEDS ORDERED: ceFOXitin 1 GM ADDVANTAGE BAG 1,000 GM in normal saline 100ml IV soln 100 ML IV SCH ×2
[2018-02-10] MEDS: potassium CL 20mEq in D5-1/2NS 1,000 ML IV SCH ×3 (02:24→17:20)
[2018-02-10] MEDS: HYDROmorphone 1 mg/ml syringe IV PRN ×2 (03:54→09:27)
[2018-02-10 04:00] VITALS: BP 106/51
[2018-02-10 06:21] LABS: BASOPHILS % (AUTO) 0.1 % (0-1); EOSINOPHILS % (AUTO) 0 % (0-6); HEMATOCRIT 37.5 % (42.0-52.0); HEMOGLOBIN 12.8 g/dl (14.0-17.9); LYMPHOCYTES # (AUTO) 0.5 X10'3 (1.1-4.8); MEAN CORPUSCULAR HGB CONC 34.1 % (33.0-36.5); MEAN CORPUSCULAR VOLUME 85.2 FL (78-98); MEAN PLATELET VOLUME 11.5 FL (7.4-10.4); MONOCYTES # (AUTO) 0.8 X10'3 (0-0.9); MONOCYTES % (AUTO) 9.1 % (2-12); NEUTROPHILS # (AUTO) 7.1 X10'3 (1.8-7.7); NEUTROPHILS % (AUTO) 84.8 % (42-75); PLATELET COUNT 157 X10'3 (140-440); RED CELL DISTRIBUTION WIDTH 15.1 % (11.5-14.5); WHITE BLOOD COUNT 8.3 X10'3 (4.5-11.0)
[2018-02-10 07:16] VITALS: BP 128/61
[2018-02-10] MEDS: ceFOXitin 1 GM ADDVANTAGE BAG 50 ML IV SCH (07:31)
[2018-02-10 11:00] VITALS: BP 145/58
[2018-02-10] MEDS: HYDROcodone/acetaminophen 10/325mg tab PO PRN ×2 (14:50→19:07)
[2018-02-10 19:00] VITALS: BP 156/76
[2018-02-11] VITALS: BP 119/75
[2018-02-11] MEDS: potassium CL 20mEq in D5-1/2NS 1,000 ML IV SCH (00:53)
[2018-02-11 06:25] LABS: BASOPHILS % (AUTO) 0.2 % (0-1); EOSINOPHILS # (AUTO) 0.2 X10'3 (0-0.9); EOSINOPHILS % (AUTO) 1.2 % (0-6); HEMATOCRIT 38.1 % (42.0-52.0); HEMOGLOBIN 12.9 g/dl (14.0-17.9); LYMPHOCYTES # (AUTO) 1.3 X10'3 (1.1-4.8); LYMPHOCYTES % (AUTO) 10.2 % (21-51); MEAN CORPUSCULAR HEMOGLOBIN 29.2 PG (27.0-31.0); MEAN CORPUSCULAR VOLUME 85.7 FL (78-98); MEAN PLATELET VOLUME 11.4 FL (7.4-10.4); MONOCYTES % (AUTO) 15.7 % (2-12); NEUTROPHILS # (AUTO) 9.4 X10'3 (1.8-7.7); NEUTROPHILS % (AUTO) 72.7 % (42-75); PLATELET COUNT 158 X10'3 (140-440); RED BLOOD COUNT 4.44 X10'6 (4.70-6.10); RED CELL DISTRIBUTION WIDTH 15.2 % (11.5-14.5)
[2018-02-11 07:00] VITALS: BP 170/95
[2018-02-11] MEDS: HYDROcodone/acetaminophen 10/325mg tab PO PRN ×2 (10:26→18:50)
[2018-02-11 10:30] VITALS: BP 167/92
[2018-02-11] MEDS ORDERED: pantoprazole 40 MG vial IV ONE (15:50)
[2018-02-11 19:00] VITALS: BP 146/75
[2018-02-11] MEDS: metoclopramide 5 mg/ml inj IV SCH (19:55)
[2018-02-12] VITALS: BP 139/77
[2018-02-12] MEDS: metoclopramide 5 mg/ml inj IV SCH ×4 (02:02→21:00)
[2018-02-12 05:37] LABS: BASOPHILS % (AUTO) 0.2 % (0-1); EOSINOPHILS # (AUTO) 0.2 X10'3 (0-0.9); EOSINOPHILS % (AUTO) 1.1 % (0-6); HEMATOCRIT 39.9 % (42.0-52.0); HEMOGLOBIN 13.4 g/dl (14.0-17.9); LYMPHOCYTES # (AUTO) 1.4 X10'3 (1.1-4.8); LYMPHOCYTES % (AUTO) 9.2 % (21-51); MEAN CORPUSCULAR HEMOGLOBIN 28.7 PG (27.0-31.0); MEAN CORPUSCULAR HGB CONC 33.5 % (33.0-36.5); MEAN CORPUSCULAR VOLUME 85.7 FL (78-98); MEAN PLATELET VOLUME 11.9 FL (7.4-10.4); MONOCYTES # (AUTO) 2.1 X10'3 (0-0.9); NEUTROPHILS # (AUTO) 11.3 X10'3 (1.8-7.7); NEUTROPHILS % (AUTO) 75.5 % (42-75); PLATELET COUNT 182 X10'3 (140-440); RED BLOOD COUNT 4.65 X10'6 (4.70-6.10); RED CELL DISTRIBUTION WIDTH 15.4 % (11.5-14.5); WHITE BLOOD COUNT 14.9 X10'3 (4.5-11.0)
[2018-02-12 06:42] LABS: TOTAL CELLS COUNTED 100
[2018-02-12 06:43] LABS: LARGE PLATELETS FEW; PLATELET ESTIMATE NORMAL
[2018-02-12 07:00] VITALS: BP 167/94
[2018-02-12] MEDS: HYDROcodone/acetaminophen 10/325mg tab PO PRN ×2 (08:29→13:09)
[2018-02-12 11:16] VITALS: BP 152/75
[2018-02-12 19:30] VITALS: BP 118/74
[2018-02-12] MEDS: pantoprazole 40 MG vial IV SCH (21:00)
[2018-02-12] MEDS: diatr meglu/diatrizoate 30ml oral sol.-(3 dose) bottle PO SCH (21:20)
[2018-02-13] VITALS: BP 127/67
[2018-02-13] MEDS: metoclopramide 5 mg/ml inj IV SCH ×4 (02:00→19:01)
[2018-02-13] MEDS: HYDROcodone/acetaminophen 10/325mg tab PO PRN ×3 (04:00→18:52)
[2018-02-13 05:19] LABS: BASOPHILS % (AUTO) 0.4 % (0-1); EOSINOPHILS # (AUTO) 0.2 X10'3 (0-0.9); HEMATOCRIT 36.9 % (42.0-52.0); HEMOGLOBIN 12.6 g/dl (14.0-17.9); LYMPHOCYTES # (AUTO) 1.2 X10'3 (1.1-4.8); LYMPHOCYTES % (AUTO) 11.3 % (21-51); MEAN CORPUSCULAR HEMOGLOBIN 28.7 PG (27.0-31.0); MEAN CORPUSCULAR HGB CONC 34.1 % (33.0-36.5); MEAN CORPUSCULAR VOLUME 84.4 FL (78-98); MEAN PLATELET VOLUME 11.1 FL (7.4-10.4); MONOCYTES # (AUTO) 1.7 X10'3 (0-0.9); MONOCYTES % (AUTO) 15.5 % (2-12); NEUTROPHILS # (AUTO) 7.7 X10'3 (1.8-7.7); NEUTROPHILS % (AUTO) 70.8 % (42-75); PLATELET COUNT 194 X10'3 (140-440); RED BLOOD COUNT 4.38 X10'6 (4.70-6.10); WHITE BLOOD COUNT 10.8 X10'3 (4.5-11.0)
[2018-02-13 06:32] LABS: LARGE PLATELETS FEW; PLATELET ESTIMATE NORMAL
[2018-02-13 07:13] VITALS: BP 125/71
[2018-02-13] MEDS: diatr meglu/diatrizoate 30ml oral sol.-(3 dose) bottle PO SCH ×2 (07:55→09:54)
[2018-02-13] MEDS: pantoprazole 40 MG vial IV SCH ×2 (07:55→18:50)
[2018-02-13] MEDS: tamsulosin 0.4mg capsule PO SCH (22:32)
[2018-02-13 23:05] LABS: CLARITY,URINE CLOUDY (Clear); GLUCOSE, URINE NEGATIVE (Neg); KETONES,URINE NEGATIVE (Neg); LEUKOCYTE ESTERASE ,URINE TRACE (Neg); NITRITES, URINE NEGATIVE (Neg); OCCULT BLOOD,URINE LARGE (Neg); PROTEIN,URINE 30 mg/dl (Neg)
[2018-02-13 23:30] LABS: COLOR,URINE YELLOW (Yellow); UA COLLECTION TYPE STRAIGHT CATH
[2018-02-13 23:31] LABS: BACTERIA,URINE FEW /HPF (Neg); RBC,URINE TNTC /HPF (0-2)
[2018-02-13 23:32] LABS: SQUAMOUS EPITHELIAL CELL,UR NONE SEEN /LPF (FEW)
[2018-02-14] MEDS: metoclopramide 5 mg/ml inj IV SCH ×4 (02:00→19:56)
[2018-02-14 05:19] LABS: BASOPHILS % (AUTO) 0.2 % (0-1); EOSINOPHILS # (AUTO) 0.5 X10'3 (0-0.9); EOSINOPHILS % (AUTO) 5.4 % (0-6); HEMATOCRIT 36.8 % (42.0-52.0); HEMOGLOBIN 12.4 g/dl (14.0-17.9); LYMPHOCYTES # (AUTO) 1.6 X10'3 (1.1-4.8); LYMPHOCYTES % (AUTO) 17.5 % (21-51); MEAN CORPUSCULAR HEMOGLOBIN 28.8 PG (27.0-31.0); MEAN CORPUSCULAR HGB CONC 33.7 % (33.0-36.5); MEAN CORPUSCULAR VOLUME 85.5 FL (78-98); MEAN PLATELET VOLUME 9.9 FL (7.4-10.4); MONOCYTES # (AUTO) 1.5 X10'3 (0-0.9); MONOCYTES % (AUTO) 16.7 % (2-12); NEUTROPHILS # (AUTO) 5.3 X10'3 (1.8-7.7); NEUTROPHILS % (AUTO) 60.2 % (42-75); PLATELET COUNT 213 X10'3 (140-440); RED CELL DISTRIBUTION WIDTH 15.6 % (11.5-14.5); WHITE BLOOD COUNT 8.9 X10'3 (4.5-11.0)
[2018-02-14] MEDS: tamsulosin 0.4mg capsule PO SCH (07:55)
[2018-02-14] MEDS: pantoprazole 40 MG vial IV SCH ×2 (07:56→19:59)
[2018-02-14] MEDS: HYDROcodone/acetaminophen 10/325mg tab PO PRN ×3 (08:32→20:10)
[2018-02-14 09:00] VITALS: BP 149/76
[2018-02-14 12:09] VITALS: BP 96/64
[2018-02-14 20:00] VITALS: BP 102/52
== END 2018-02-14 22:05 | disposition home or self-care (01) | DRG 418 ==
LOC: PAS 09:52 → OBSVTOIN 18:24 → SUR 3N 18:24
PROVIDERS: ADMIT Surgery; ATTEND Surgery
PROC: 0FN44ZZ Release Gallbladder, Percutaneous Endoscopic Approach (ICD-10-PCS; 2018-02-09)
PROC: 0FT44ZZ Resection of Gallbladder, Percutaneous Endoscopic Approach (ICD-10-PCS; principal; 2018-02-09 16:40)
DX: K80.20 Calculus of gallbladder without cholecystitis without obstruction (principal); K56.7 Ileus, unspecified; I25.10 Atherosclerotic heart disease of native coronary artery without angina pectoris; I10 Essential (primary) hypertension; K22.70 Barrett's esophagus without dysplasia; G89.29 Other chronic pain; N28.1 Cyst of kidney, acquired; K82.8 Other specified diseases of gallbladder; M54.9 Dorsalgia, unspecified; Z95.1 Presence of aortocoronary bypass graft; Z90.49 Acquired absence of other specified parts of digestive tract; Z79.899 Other long term (current) drug therapy
CPT/HCPCS: 36415; 71045; 74176; 80053; 81001; 85025; 85610; 85730; 87070; 87088; 88304; A4315; A4353; A6212; A6251; A7000; C9113; C9399; J0690; J0694; J1170; J1885; J2175; J2250; J2270; J2405; J2704; J2710; J2765; J3010; J3490; J7030; J7120; Q9963

== ENCOUNTER 2020-11-24 06:11 | Day surgery (SDC) | payer MEDICARE, BC ==
[2020-11-23 17:08] LABS: BASOPHILS % (AUTO) 0.5 % (0-1); EOSINOPHILS # (AUTO) 0.1 X10'3 (0-0.9); EOSINOPHILS % (AUTO) 1.2 % (0-6); HEMATOCRIT 44.5 % (42.0-52.0); HEMOGLOBIN 14.7 g/dl (14.0-17.9); LYMPHOCYTES # (AUTO) 1.9 X10'3 (1.1-4.8); MEAN CORPUSCULAR HEMOGLOBIN 30.4 PG (27.0-31.0); MEAN CORPUSCULAR HGB CONC 32.9 g/dL (33.0-36.5); MEAN CORPUSCULAR VOLUME 92.2 FL (78-98); MEAN PLATELET VOLUME 11.3 FL (7.4-10.4); MONOCYTES # (AUTO) 1.1 X10'3 (0-0.9); MONOCYTES % (AUTO) 12.2 % (2-12); NEUTROPHILS # (AUTO) 5.6 X10'3 (1.8-7.7); NEUTROPHILS % (AUTO) 64.1 % (42-75); PLATELET COUNT 181 X10'3 (140-440); RED BLOOD COUNT 4.83 X10'6 (4.70-6.10); RED CELL DISTRIBUTION WIDTH 15.4 % (11.5-14.5); WHITE BLOOD COUNT 8.7 X10'3 (4.5-11.0)
[2020-11-23 17:20] LABS: PARTIAL THROMBOPLASTIN TIME 27 SECONDS (22-32)
[2020-11-23 17:22] LABS: ALBUMIN 4.3 G/DL (3.4-5.0); ANION GAP 7 (8-16); BLOOD UREA NITROGEN 57 MG/DL (7-18); CALCIUM 9.1 MG/DL (8.5-10.1); CHLORIDE 101 MMOL/L (99-107); CREATININE 2.59 MG/DL (0.60-1.10); GLUCOSE 86 MG/DL (70-104); POTASSIUM 4.9 MMOL/L (3.5-5.1); SODIUM 140 MMOL/L (135-145); TOTAL CARBON DIOXIDE 32.3 MMOL/L (24-32); eGFR 24 ML/MIN
[2020-11-23 22:09] LABS: LARGE PLATELETS MODERATE; PLATELET ESTIMATE NORMAL
[2020-11-24] VITALS (13 sets, daily range): BP systolic 83–127; BP diastolic 40–94
[~2020-11-24] VITALS: Ht 167.6 cm; Wt 76.8 kg
[~2020-11-24 06:11] MED LIST changes: -ALPR1TAB2 PO; -HYDR-565 PO; +OMEP40CA21 PO; -OMEP40CA37 PO; -ceFOXitin 2 GM ADDvantage bag 100 ML IV ONE; -famotidine 20mg tablet PO ONE
[2020-11-24] MEDS ORDERED: normal saline 1000ml 1,000 ML IV SCH (06:35)
[2020-11-24] MEDS ORDERED: cefazolin/dext.iso 2gm/100ml 100 ML IV ONE (06:35)
[2020-11-24] MEDS ORDERED: HYDR-3972 PO (07:18)
[2020-11-24] MEDS ORDERED: ALPR-624 PO (07:18)
[2020-11-24] MEDS ORDERED: FURO-149 PO (07:18)
[2020-11-24] MEDS ORDERED: SPIR25TA5 PO (07:18)
[2020-11-24] MEDS ORDERED: LISI40TA13 PO (07:18)
[2020-11-24] MEDS ORDERED: AMIO200T27 PO (07:18)
[2020-11-24] MEDS ORDERED: DILT240C88 PO (07:18)
[2020-11-24] MEDS ORDERED: ceFAZolin 1000mg inj ONE (07:22)
[2020-11-24] MEDS ORDERED: midazolam 1 mg/ML 2ml injection ONE (07:22)
[2020-11-24] MEDS ORDERED: fentaNYL/PF 50MCG/1 ML 2ML syringe ONE (07:22)
[2020-11-24] MEDS ORDERED: LIDOcaine 1% W/epiNEPHrine 1:100,000 20ml vial ONE ×2 (07:23→08:37)
[2020-11-24] MEDS ORDERED: ceFAZolin 2gm in dextrose, iso 50 ML IV ONE (08:06)
[2020-11-24] MEDS ORDERED: verapamil 2.5 mg/ml inj IV ONE (08:38)
[2020-11-24] MEDS ORDERED: vancomycin/NS 1 GM ADD-VANTAGE 250 ML X 1 DOSE IV ONE (11:00)
[2020-11-24] MEDS ORDERED: HYDROcodone/acetaminophen 10/325mg tab PO ONE (14:35)
[2020-11-24] MEDS ORDERED: morphine 2 MG/ML inj. syringe IV ONE (14:35)
[2020-12-01] MEDS ORDERED: CEPH-585 PO (13:41)
[2020-12-01] MEDS ORDERED: ASPI-845 PO (13:41)
[2020-12-01] MEDS ORDERED: CARV25TA3 PO (13:41)
[2020-12-01] MEDS ORDERED: LISI10TA27 PO (13:50)
[2020-12-06] MEDS ORDERED: AMIO200T67 PO ×2 (11:27)
[2020-12-06] MEDS ORDERED: CARV6.253 PO (11:27)
[2020-12-06] MEDS ORDERED: AMIO200T61 PO (12:45)
[2020-12-07] MEDS ORDERED: FURO-150 PO (10:02)
== END 2020-11-24 16:00 | disposition home or self-care (01) ==
LOC: SSTAY O 06:11
PROVIDERS: ATTEND Internal Medicine Cardiovascular Disease
DX: I42.0 Dilated cardiomyopathy (principal); I25.5 Ischemic cardiomyopathy; I50.22 Chronic systolic (congestive) heart failure; I48.91 Unspecified atrial fibrillation; I25.10 Atherosclerotic heart disease of native coronary artery without angina pectoris; Z95.1 Presence of aortocoronary bypass graft; I11.0 Hypertensive heart disease with heart failure; E78.5 Hyperlipidemia, unspecified; K21.9 Gastro-esophageal reflux disease without esophagitis; I25.2 Old myocardial infarction; Z79.899 Other long term (current) drug therapy; Z98.890 Other specified postprocedural states
CPT/HCPCS: 33249; 36415; 71046; 80048; 85025; 85610; 85730; 93005; 99152; 99153; C1721; C1894; C1895; J0690; J2250; J3010; J3370; J7030; 85008; A4565; A4620; A6258; A6449